=== PATIENT | female | born 1985 | race Caucasian/White ===

== ENCOUNTER → 2016-07-26 | Outpatient (CLI) | payer OTHER ==
--- NOTE | ~2016-07-26 | CT71 ---
[facility] A Service of [facility] RADIOLOGY TEXT RESULTS PATIENT: JARED RAZA LOCATION: [facility] : 87 UNIT #: [id number] AGE: [address]: Bud Monet MD SEX: F ORDER DR: [id number] [address] [id number] MR#: [id number] Acc #: [id number] NAME: JARED RAZA : 1985 SEX: F STUDY DATE/TIME: 07/26/2016 11:11 UNIT: [facility] ROOM: STUDY DESCRIPTION: CT Head Wo Contrast Attending Physician: Bud Monet M.D. Referring Physician: Bud Monet M.D. Ordering Physician: Bud Monet M.D. Primary Care Physician: Bud Monet M.D. MEDICAL IMAGING REPORT This report is preliminary unless electronic signature is present. EXAM CT brain without contrast media. HISTORY Headaches for 2 years, right occipital pain. TECHNIQUE Axial imaging of the brain was performed without contrast media: This CT exam was performed with one or more of the following radiation dose reduction techniques: automatic exposure control, adjustment of mA and/or kV according to patient size, and iterative reconstruction. FINDINGS Ventricular size and configuration is normal. No intra or extraaxial mass lesions, fluid collections or mass effect are seen. No focal areas of low attenuation or evidence of acute hemorrhage. Bone windows are reviewed and appear unremarkable. CONCLUSION 1. Negative noncontrast CT of the brain. Dictated by... Jose Crow M.D. THIS IS AN ELECTRONICALLY VERIFIED REPORT Jose Crow M.D. at 07/29/2016 5:12 PM YOSHI/bere TD: 07/26/2016 20:31 JOB #: [id number] MEDICAL IMAGING REPORT [facility] A Service [facility] RADIOLOGY TEXT RESULTS PATIENT: JARED RAZA LOCATION: [facility] : 87 UNIT #: [id number] AGE: [address]: Bud Monet MD SEX: F ORDER DR: Page 1 of 1
== END | disposition home or self-care (01) ==
LOC: SCT 10:35
DX: R51 Headache (principal)
CPT/HCPCS: 70450